=== PATIENT | female | born 1935 | race Caucasian/White ===

== ENCOUNTER 2017-08-10 11:37 | Emergency (ER) | payer MEDICARE, BC ==
--- NOTE | 2017-08-10 12:03 | Emergency Department Record ---
History of Present Illness - General Chief complaint: Weakness Stated complaint: WEAKNESS/NEAR SYNCOPE Time Seen by Provider: 08/10/17 11:52 Source: Patient, Family Mode of Arrival: EMS - History of Present Illness Initial comments: 82 yo female presents with weakness, dizziness, nausea, some changes in vision. The patient states she went to bed around 8pm in her usually states of health. She woke up around 1am to use the restroom. She noted some headache at that time. She states felt a little dizzy and off balance. She went back to bed and awoke at 5am. At that time she was weak, she noted difficulty walking. Her speech has been slowed from her baseline significantly. She is slurring and very slow to find words. She had to hold onto the wells and furniture for balance as she was not able to walk on her own. 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 The headache was resolved by 5am. No fevers. No dysuria or diarrhea. Family is present and states she was in her normal state of health yesterday and seems very weak today. PCP is Dr Rinaldi PMHx Diverticulitis, hypothyroidism, fallopian tube cancer, renal artery stenosis, -: Awoke with symptoms (1am) Location: Generalized Severity: Moderate Consistency: Constant Improves with: None Worsens with: Exertion, Movement Associated Symptoms: Other - [place] Coma Scale Eye Response: (4) Open spontaneously Motor Response: (6) Obeys commands Verbal Response: (5) Oriented [place] Total: 15 - Related Data Previous Rx's Medication Instructions Recorded Ciprofloxacin HCl [Cipro] 500 mg PO Q12HR #16 tablet 01/08/16 Metronidazole [Flagyl] 500 mg PO Q8HR #24 tablet 01/08/16 Allergies Allergy/AdvReac Type Severity Reaction Status Date / Time No Known Drug Allergies Allergy Verified 09/13/14 09:03 Review of Systems Constitutional: Reports: Malaise, Weakness. Denies: Chills, Fever Eyes: Reports: Vision change ("fuzzy" double at time). Denies: Eye discharge, Eye pain, Photophobia ENT: Denies: Congestion, Throat pain Respiratory: Denies: Cough Cardiovascular: Denies: Chest pain, Syncope Endocrine: Reports: Fatigue Gastrointestinal: Reports: Nausea, Vomiting. Denies: Abdominal pain Genitourinary: Denies: Dysuria Musculoskeletal: Denies: Arthralgia, Back pain, Joint swelling, Myalgia Skin: Denies: Bruising, Change in color, Rash Neurological: Reports: Abnormal gait, Headache (resovled), Vertigo, Weakness, Other (slower speech). Denies: Confusion, Numbness, Seizure, Tingling, Tremors Psychiatric: Denies: Anxiety Hematological/Lymphatic: Denies: Blood Clots, Easy bleeding, Easy bruising, Swollen glands Past Medical History - SOCIAL HISTORY Smoking Status: Never smoker Drug Use: None - RESPIRATORY Hx Respiratory Disorders: No - CARDIOVASCULAR Hx Cardio Disorders: No Comment:: never had a stress test - NEURO Hx Neuro Disorders: No Comment:: facial tic - GI Hx GI Disorders: Yes Hx of Polyps: Yes - Hx Genitourinary Disorders: No - ENDOCRINE Hx Endocrine Disorders: Yes Hx Thyroid Disease: Yes - MUSCULOSKELETAL Hx Musculoskeletal Disorders: Yes Hx Arthritis: Yes - PSYCH Hx Psych Problems: Yes Hx Anxiety: Yes Hx Depression: Yes - HEMATOLOGY/ONCOLOGY Hx Hematology/Oncology Disorders: Yes Hx Cancer: Yes (fallopian tubes) Hx Chemotherapy: Yes Family Medical History Hx Cancer: Mother *Cancer Comment: colon cancer Physical Exam - General General Appearance: Alert, Oriented x3, Cooperative, Other (Speech is somewhat slower per family) Limitations: No limitations, Other (No confusion) - Head Head exam: Atraumatic, Normocephalic, Normal inspection - Eye Eye exam: Normal appearance, PERRL, EOMI. negative: Conjunctival injection, Nystagmus, Periorbital swelling, Scleral icterus Pupils: Normal accommodation. negative: Irregular, Unequal - ENT ENT exam: Normal exam, Mucous membranes moist, Normal orophraynx Ear exam: Normal external inspection Nasal Exam: Normal inspection Mouth exam: Normal external inspection Teeth exam: Normal inspection Throat exam: Normal inspection - Neck Neck exam: Normal inspection, Full ROM. negative: Tenderness - Respiratory Respiratory exam: Normal lung sounds bilaterally. negative: Respiratory distress - Cardiovascular Cardiovascular Exam: Regular rate, Normal rhythm, Normal heart sounds Peripheral Pulses: 2+: Radial (R), Radial (L) - GI/Abdominal GI/Abdominal exam: Soft. negative: Tenderness - Rectal Rectal exam: Deferred - exam: Deferred - Extremities Extremities exam: Full ROM, Normal capillary refill. negative: Joint swelling, Pedal edema, Tenderness - Back Back exam: Reports: Normal inspection, Full ROM. Denies: CVA tenderness (R), CVA tenderness (L), Muscle spasm, Rash noted, Tenderness - Neurological Neurological exam: Abnormal gait, Alert, CN II-XII intact, Other (No PND, holter scanning technician intact, No LE PND. vision is "fuzzy in the lateral gazes and clears in upward gaze) - Psychiatric Psychiatric exam: Depressed - Skin Skin exam: Dry, Intact, Normal color, Warm Stroke Assessment - NIH Stroke Scale 1a. Level of Consciousness: (0) Alert 1b. LOC Questions: (0) Answers Correctly 1c. LOC Commands: (0) Performs Tasks Correctly 2. Best Gaze: (1) Partial Gaze Palsy 3. Visual: (0) No Visual Loss 4. Facial Palsy: (0) Normal Symmetrical Movement 5a. Motor Arm Left: (0) No Drift 5b. Motor Arm Right: (0) No Drift 6a. Motor Leg Left: (0) No Drift 6b. Motor Leg Right: (0) No Drift 7. Limb Ataxia: (0) Absent 8. Sensory: (0) Normal 9. Best Language: (1) Mild/Moderate Aphasia 10. Dysarthria: (1) Mild/Moderate Dysarthria 11. Extinction/Inattention: (0) No Abnormality NIH [place]oke Scale Total: 3 Course - Reevaluation(s) Reevaluation #1: The patient was rechecked Her speech has now returned to a normal speed and pedro Her initial speech was very slow and deliberate and slurred Her visional is no longer double 08/10/17 12:15 08/10/17 12:17 EKG sinus rhythm rate 85, intervals normal, axis leftward, ST no acute changes, poor R wave. No changes from 9.5.13 08/10/17 12:49 No acute changes on the CBC or Coag's HCT is pending 08/10/17 12:58 The patient remains asymptomatic with clear rapid speech at her baseline. Normal vision. She is reading signs across the room. I explained at length this could be a TIA/Stroke. I explained I will recommend discussion with the Stroke Service at [facility] or the hospital of her choice. She at this time is very adamant that she will not stay or be transferred. I explained that a large debilitating stroke could occur and this is a warning sign. She understands and still at this time is not willing to be transferred. I will readdress this when CT is reported. 08/10/17 13:03 Radiologist called. No answer. Waiting for CT report. 08/10/17 13:10 HCT demonstrated atrophy and small vessel ischemic disease no acute findings. 08/10/17 13:15 The patient is now willing to discuss possible transfer and stroke evaluation 08/10/17 13:18 I called [facility] and Spoke with Dr Haynes of the Stroke team He accepts the patient for transfer and further work up He agrees with aspirin Medical Decision Making - Lab Data Result diagrams: 08/10/17 11:25 08/10/17 11:25 Disposition Disposition: Transfer Clinical Impression: TIA (transient ischemic attack) Disposition: Acute Care Hospital Transfer Transfer To: [facility] Reason For Transfer: TIA Accepting Physician: [place] Time Discussed w/Accepting Physician: 13:23 Condition: (2) Stable Forms: Patient Portal Access Time of Disposition: 13:23 Quality - Quality Measures Quality Measures: N/A - Blood Pressure Screening Does Patient Have Any of the Following: No Blood Pressure Classification: Normal BP Reading Systolic Measurement: 115 Diastolic Measurement: 63 Screening for High Blood Pressure: < Normal BP, F/U Not Required > [G8783]
[2017-08-10 12:27] LABS: BASO % 0.2 % (0-6); EOS % 0.6 % (0-6); GRAN % 76.2 % (47-80); HEMATOCRIT 38.3 % (35.0-47.0); HEMOGLOBIN 12.4 gm/dl (11.6-16.0); LYMPH % 14.1 % (16-45); MEAN CELL VOLUME 87.2 fl (81-97); MEAN CORPUSCULAR HEMOGLOBIN 28.2 pg (27-33); MEAN CORPUSCULAR HGB CONC 32.4 g/dl (32-36); MEAN PLATELET VOLUME 9.4 fl (7.4-10.4); MONO % 8.9 % (0-9); PLATELET COUNT 386 K/uL (130-400); RED BLOOD COUNT 4.39 M/uL (3.80-5.40); RED CELL DISTRIBUTION WIDTH 13.6 % (11.5-14.5); WHITE BLOOD COUNT W/O DIFF 10.7 K/uL (4.2-12.2)
[2017-08-10 12:43] LABS: PARTIAL THROMBOPLASTIN TIME 24.4 SECONDS (24.5-39.1); PROTHROMBIN TIME (PATIENT) 10.5 SECONDS (9.5-12.1)
[2017-08-10 12:54] LABS: BLOOD UREA NITROGEN 15 mg/dL (8-23); CREATININE 0.7 mg/dL (0.5-0.9); EST GLOMERULAR FILTRATION RATE > 60 mL/min
[2017-08-10 12:57] LABS: GLUCOSE,RANDOM 135 mg/dL (74-109)
[2017-08-10 12:59] LABS: ALT/SGPT 10 U/L (<33)
[2017-08-10 13:00] LABS: ALB/GLOB RATIO 1.7 (1.1-1.8); ALBUMIN 4.4 g/dL (4.0-5.0); ALKALINE PHOSPHATASE 75 U/L (35-104); AST/SGOT 14 U/L (10.0-35.0)
[2017-08-10] MEDS ORDERED: ASPIRIN 325 MG TAB ENTERIC-COATED PO ONE (13:20)
--- NOTE | 2017-08-10 15:10 | CT SCAN REPORT ---
EXAM: CT OF THE BRAIN HISTORY: HEADACHE. TECHNIQUE: CT of the brain without contrast was obtained. Comparison: 09/13/14 CT of the brain. FINDINGS: The globes are intact. The paranasal sinuses and mastoid air cells are unremarkable. No displaced or depressed skull fracture. No intra or extraaxial hemorrhage. CT is limited for the evaluation of acute infarct. No CT evidence for large or territorial acute infarct. No mass or midline shift. Diffuse atrophy. Hypodensities in the periventricular and subcortical white matter consistent with sequelae of small vessel ischemic change. IMPRESSION: NEGATIVE FOR ACUTE INTRACRANIAL ABNORMALITY. ATROPHY. SMALL VESSEL ISCHEMIC CHANGE. JOB NUMBER: [id number] MTDD
== END 2017-08-10 14:40 | disposition short-term general hospital (02) ==
LOC: ER 11:37
DX: G45.9 Transient cerebral ischemic attack, unspecified (principal); R11.0 Nausea; R51 Headache; E03.9 Hypothyroidism, unspecified; I70.1 Atherosclerosis of renal artery
CPT/HCPCS: 70450; 80053; 84443; 84484; 85025; 85610; 85730; 93005; 93010; 99285